=== PATIENT | male | born 1970 | race Caucasian/White ===

== ENCOUNTER 2022-07-13 16:55 | Emergency (ER) | payer OTHER, SELFPAY ==
[2022-07-13 16:59] VITALS: BP 152/86; PULSE 103; RESP 20; TEMP 36.8; O2SAT 98; BMI 35.2
--- NOTE | 2022-07-13 17:47 | ED.URI ---
HPI - URI/Sore Throat <ANTONIO Bautista Last Filed: 07/13/22 19:11> General Chief Complaint: Upper Respiratory Symptoms Stated Complaint: sore throat/lt ear pain Time Seen by Provider: 07/13/22 17:45 History of Present Illness HPI Narrative: This is a 51-year-old male presents emergency department due to a sore throat for the last 7 days. He also reports increased fatigue. Denies any coughs and reported some tactile fevers. Denies any difficulty breathing or swallowing. States he is also having some left-sided lymphadenopathy in his neck that is causing a little bit of discomfort. Related Data Previous Rx's Medication Instructions Recorded penicillin V potassium 500 mg 500 mg PO TID 10 days #30 tabs 07/13/22 tablet Allergies Allergy/AdvReac Type Severity Reaction Status Date / Time No Known Drug Allergies Allergy Verified 07/13/22 17:03 Review of Systems <Sanchez Martel PA-C - Last Filed: 07/13/22 19:11> Review of Systems Narrative: GENERAL: Denies chills, fatigue, malaise, fever, sweats. HEENT: Denies sinus pain, ear pain, sore throat, difficulty swallowing, dizziness. RESPIRATORY: Denies dyspnea, cough, wheezing, hemoptysis, sputum. CARDIOVASCULAR: Denies chest pain, palpitations, orthopnea, edema, GASTROINTESTINAL: Denies nausea, vomiting, abdominal pain, diarrhea, constipation, melena. : Denies dysuria, frequency, incontinence, hematuria, urinary retention. MUSCULOSKELETAL: denies weakness, joint pain, or bony pain SKIN: Denies rash, skin lesions, or other NEUROLOGIC: Denies weakness, headache, numbness, change in speech, confusion, seizures, incoordination. PSYCHIATRIC: No concerning psychosocial issues. 12 point review of systems is negative except for those stated above Exam <ANTONIO Bautista Last Filed: 07/13/22 19:11> Narrative Exam Narrative: GENERAL: Well-developed patient, in mild distress. HEAD: Atraumatic. Normocephalic. EYES: Pupils equal round and reactive. Extraocular motions intact. No scleral icterus. No injection or drainage. ENT: Nose without bleeding, purulent drainage. Throat with minimal erythema, no tonsillar hypertrophy or exudate. Airway patent. Uvula is midline. NECK: Trachea midline. Non tender CARDIOVASCULAR: Regular rate and rhythm without murmurs, gallops, or rubs. RESPIRATORY: Clear to auscultation. Breath sounds equal bilaterally. No wheezes, rales, or rhonchi. GASTROINTESTINAL: Abdomen soft, non-tender, nondistended. EXTREMITIES: No edema or joint tenderness. BACK: Nontender without deformity or crepitance. No flank tenderness. NEURO: AOx3. SKIN: No rash or erythema of visible areas Initial Vital Signs Initial Vital Signs: Vital Signs Temperature 98.2 F 07/13/22 16:59 Pulse Rate 103 H 07/13/22 16:59 Respiratory Rate 20 07/13/22 16:59 Blood Pressure 152/86 H 07/13/22 16:59 Pulse Oximetry 98 07/13/22 16:59 Oxygen Delivery Method Room Air 07/13/22 16:59 <Prerna Saldaña DO - Last Filed: 07/13/22 23:22> Initial Vital Signs Initial Vital Signs: Vital Signs Temperature 98.2 F 07/13/22 16:59 Pulse Rate 103 H 07/13/22 16:59 Respiratory Rate 20 07/13/22 16:59 Blood Pressure 152/86 H 07/13/22 16:59 Pulse Oximetry 98 07/13/22 16:59 Oxygen Delivery Method Room Air 07/13/22 16:59 Course <Sanchez Martel PA-C - Last Filed: 07/13/22 19:11> Orders Ordered: ED Orders 07/13/22 17:04 Covid-19 + FLU A/B + RSV - PCR Stat Throat Culture Stat 07/13/22 18:07 Strep Grp A by PCR Rapid Stat Discontinued Medications Acetaminophen (Acetaminophen 325 Mg Tablet) 975 mg PO NOW ONE Stop: 07/13/22 18:25 Last Admin: 07/13/22 18:28 Dose: 975 mg Documented By: CTS Penicillin V Potassium (Penicillin 250 Mg Tab Prepack) 1 bottle MISC SEEINSTR ONE Stop: 07/13/22 19:19 Last Admin: 07/13/22 19:22 Dose: 1 bottle Documented By: RL Vital Signs Vital signs: Vital Signs - 8 hr 07/13/22 16:59 07/13/22 18:00 Temperature 98.2 F Pulse Rate 103 H 92 H Respiratory Rate 20 Blood Pressure 152/86 H 133/76 Pulse Oximetry 98 98 Oxygen Delivery Method Room Air Room Air <Prerna Saldaña DO - Last Filed: 07/13/22 23:22> Orders Ordered: ED Orders 07/13/22 17:04 Covid-19 + FLU A/B + RSV - PCR Stat Throat Culture Stat 07/13/22 18:07 Strep Grp A by PCR Rapid Stat Discontinued Medications Acetaminophen (Acetaminophen 325 Mg Tablet) 975 mg PO NOW ONE Stop: 07/13/22 18:25 Last Admin: 07/13/22 18:28 Dose: 975 mg Documented By: FRANCO Penicillin V Potassium (Penicillin 250 Mg Tab Prepack) 1 bottle MISC SEEINSTR ONE Stop: 07/13/22 19:19 Last Admin: 07/13/22 19:22 Dose: 1 bottle Documented By: FRANKI Vital Signs Vital signs: Vital Signs - 8 hr 07/13/22 16:59 07/13/22 18:00 Temperature 98.2 F Pulse Rate 103 H 92 H Respiratory Rate 20 Blood Pressure 152/86 H 133/76 Pulse Oximetry 98 98 Oxygen Delivery Method Room Air Room Air MDM - URI/Sore Throat <Sanchez Martel PA-C - Last Filed: 07/13/22 19:11> Lab Data Labs: Lab Results 07/13/22 07/13/22 Range/Units 17:04 18:07 SARS-CoV-2 (PCR) Negative (Negative) Influenza A (RT-PCR) Flu a negative (NEGATIVE) Influenza B (RT-PCR) Flu b negative (NEGATIVE) RSV (PCR) Negative (Negative) Group A Strep (PCR) Positive H (Negative) MDM Narrative Medical decision making narrative: MDM * differential diagnosis includes but not limited to viral pharyngitis, bacterial pharyngitis, peritonsillar abscess * Prior records reviewed: Patient has not been here for similar complaints in the past. * My lab interpretation: Rapid strep came back positive * My imgaing interpretation: None * Clinical Decision Rules/Scores evaluated: None * Independent discussions with: None ED Course: This is a 51-year-old male presents emergency department with a sore throat. Rapid strep came back positive. We will treat with oral antibiotics. No evidence of peritonsillar abscess on exam. Shared Decision Making: Discussed plan with patient who is comfortable with the plan Social Considerations: None Disposition: Discharged to home <Prerna Saldaña DO - Last Filed: 07/13/22 23:22> Lab Data Labs: Lab Results 07/13/22 07/13/22 Range/Units 17:04 18:07 SARS-CoV-2 (PCR) Negative (Negative) Influenza A (RT-PCR) Flu a negative (NEGATIVE) Influenza B (RT-PCR) Flu b negative (NEGATIVE) RSV (PCR) Negative (Negative) Group A Strep (PCR) Positive H (Negative) Discharge Plan Departure Patient Disposition: Home Clinical Impression: Strep throat Instructions: DI for Strep Throat Activity Restrictions/Additional Instructions: Thank you for coming to the [facility] Emergency Department today. Your rapid strep test came back positive. Please take the oral antibiotics as prescribed. May use Tylenol for any fevers. Sent your medication to [facility] in [place]. I hope you feel better soon. Prescriptions: New penicillin V potassium 500 mg tablet 500 mg PO TID 10 Days Qty: 30 0RF Stand Alone Forms: Patient Portal/API <Prerna Saldaña DO - Last Filed: 07/13/22 23:22> Cosign ED Attending Cosignature Attestation: I was immediately available in the department for consultation. Documentation has been reviewed.
[2022-07-13 18:00] VITALS: BP 133/76; PULSE 92; O2SAT 98
[2022-07-13 18:06] LABS: Influenza A - CEPHEID Flu A NEGATIVE (NEGATIVE); Influenza B - CEPHEID Flu B NEGATIVE (NEGATIVE); Respiratory Syncytial Virus Negative (Negative)
[2022-07-13 18:10] LABS: COVID-19 CEPHEID 4-PLEX PCR Negative (Negative)
[2022-07-13] MEDS: ACETAMINOPHEN 325 MG TABLET 975 MG PO (18:28)
[2022-07-13 19:01] LABS: Strep Grp A by PCR Rapid Positive (Negative)
[2022-07-13] MEDS: PENICILLIN 250 MG TAB PREPACK 1 BOTTLE MISC (19:22)
== END 2022-07-13 19:25 | disposition home or self-care (01) ==
PROVIDERS: Emergency Medicine; Emergency Provider Physician Assistant Medical
DX: J02.0 Streptococcal pharyngitis (principal); Z20.822 Contact with and (suspected) exposure to COVID-19
CPT/HCPCS: 0241U; 87070; 87077; 87147; 87651; 99283